=== PATIENT | female | born 1970 | race Caucasian/White ===

== ENCOUNTER 2023-03-17 07:50 | Emergency (ER) | payer OTHER, MEDICAID, SELFPAY ==
[2023-03-17 08:02] VITALS: BP 146/90; PULSE 85; RESP 20; TEMP 36.6; O2SAT 96; BMI 33.3
--- NOTE | 2023-03-17 08:12 | CT_ITS ---
[address] [address] Patient Name: DANISH HENSON MRN: [id number] date: 1970 Sex: F Assigned Patient Location: ER Current Patient Location: Accession/Order Number: [id number] Exam Date: 03/17/2023 08:34 Report Date: 03/17/2023 09:26 At the request of: CEE ALMEIDA Procedure: CT abdomen pelvis w con EXAMINATION: CT abdomen pelvis w con HISTORY: rlq pain , acute; nausea COMPARISON: No relevant comparison available. TECHNIQUE: Axial, Coronal, and Sagittal images were obtained without and/or with IV contrast as indicated by examination type. Dose reduction techniques were achieved by using automated exposure control and/or adjustment of mA and/or kV according to patient size and/or use of iterative reconstruction technique. FINDINGS: LUNG BASES: No visible pulmonary or pleural disease. LIVER: No enlargement, atrophy, suspicious density, or significant focal lesion. BILIARY: No dilatation or calcification. PANCREAS: No lesion, fluid collection, or abnormal duct dilatation. SPLEEN: No enlargement or focal lesion. ADRENALS: No mass or enlargement. KIDNEYS: No mass, obstruction, or calcification. BOWEL/MESENTERY: No visible mass, obstruction, or bowel wall thickening. Normal appendix. AORTA/VASCULAR: No aneurysm or dissection. RETROPERITONEUM: No mass or adenopathy. LYMPH NODES: No adenopathy. URINARY BLADDER: No visible focal wall thickening, lesion, or calculus. PELVIC ORGANS: Hysterectomy. ABDOMINAL WALL: No mass or hernia. BONES: Minimal grade 1 anterolisthesis of L4 on 5. Multilevel mild degenerative disc disease and degenerative facet arthropathy. No fracture. OTHER: Negative. CT/CT abdomen pelvis w con IMPRESSION: 1.No acute or specific findings to account for patient's right lower quadrant symptoms. Electronically authenticated by: STELLA OSORIO Date: 03/17/2023 09:26
--- NOTE | 2023-03-17 08:21 | ED.GENADUL1 ---
HPI - General Adult General Chief complaint: Abdominal Pain Stated complaint: ABDOMINAL PAIN Time Seen by Provider: 03/17/23 08:08 Source: patient Mode of arrival: walk-in Limitations: no limitations History of Present Illness HPI narrative: patient is a 52-year-old female who is presenting to the Emergency Room today with chief complaint of midepigastric and right upper quadrant abdominal pain, started less than a minute. Patient's pain was fairly constant all evening, she was able to sleep approximately one hour at 4 AM. The patient woke up for pain was still there. Patient had hamburgers, fruits and vegetables last evening for dinner. Patient drinks 4 or 5 steps is a day. No significant anti-inflammatories daily. Patient took some Motrin last night for a headache. Patient has no black stools. Patient had nausea no vomiting. No chest pain or shortness of breath. Patient states she's been having normal soft stool bowel movements daily with no acute complaints. Patient's had a hysterectomy. She still has her gallbladder and appendix. No bowel or bladder changes. No urinary changes. Patient has no history of acid reflux or heartburn. All systems are negative except as noted/marked. All systems reviewed and otherwise negative. . Nurses note and vital signs reviewed and patient is not hypoxic. General: The patient appears mild distress secondary to pain. Patient is resting uncomfortably on cart. Patient is not toxic, lethargic, or listless Skin: Warm, dry, no pallor noted. There is no rash noted. No petechiae, purpura. Head: Normocephalic, atraumatic Eye: Normal conjunctiva, no drainage, EOMI. PERRL Ears, Nose, Mouth, and Throat: oral mucosa is moist. Nares patent. Mouth without vesicles. Cardiovascular: Regular Rate and Rhythm, no murmur, gallop, rub Respiratory: Patient is in no distress, no accessory muscle use, lungs are clear to auscultation, no wheezing, rales or rhonchi Back: non-tender, no CVA tenderness bilaterally to percussion. No CT LS midline pain GI: soft, obese, mild to moderate midepigastric and right upper quadrant tenderness to palpation, mild to moderate right lower quadrant has palpation, mild right flank pain, mild periumbilical tenderness to palpation, no rigidity tympany, no peritoneal signs, no suprapubic tenderness to palpation, no left upper quadrant or left lower quadrant tenderness to palpation; otherwise no tenderness to palpation, no masses appreciated. No rebound, mild guarding; NO rigidity noted. No flank pain bilateral, No distention Musculoskeletal: Patient has full range of motion of all of the extremities, no motor, sensory, or focal neurological deficits Neurological: A&O x3, normal speech Psychiatric: Cooperative Related Data Previous Rx's Medication Instructions Recorded dicyclomine 20 mg tablet 20 mg PO TID PRN abdominal pain #7 03/17/23 tabs ondansetron 4 mg disintegrating 4 mg PO Q4H PRN nausea and 03/17/23 tablet vomiting 3 days #6 tabs Allergies Allergy/AdvReac Type Severity Reaction Status Date / Time Penicillins AdvReac Severe Verified 03/17/23 08:00 [facility] Surgical History (Updated 03/17/23 @ 08:06 by Steven Obrien) Social History Smoking status: Former smoker Exam Constitutional Vital Signs, click to edit/add: Last Vital Signs Temp 97.9 F 03/17/23 08:02 Pulse 74 03/17/23 10:07 Resp 18 03/17/23 10:07 BP 102/59 03/17/23 10:07 Pulse Ox 98 03/17/23 10:07 Course Vital Signs Vital signs: Vital Signs Temperature 97.9 F 03/17/23 08:02 Pulse Rate 85 03/17/23 08:02 Respiratory Rate 20 03/17/23 08:02 Blood Pressure 146/90 H 03/17/23 08:02 Pulse Oximetry 96 03/17/23 08:02 Temperature 97.9 F 03/17/23 08:02 Pulse Rate 74 03/17/23 10:07 Respiratory Rate 18 03/17/23 10:07 Blood Pressure 102/59 03/17/23 10:07 Pulse Oximetry 98 03/17/23 10:07 Medical Decision Making MDM Narrative Medical decision making narrative: Patient's lab work, urine, CT abdomen and pelvis no acute findings. Patient felt better after IV fluids and medication has been given. No clear etiology to patient's pain is been ongoing since midnight last night. A lot of differential diagnoses were discussed at discharge. Patient will use Pepcid, and either Maalox or Mylanta at home if needed. Patient was sent home with prescription for Zofran and Bentyl use if needed. Reasons why to follow-up with her PCP and to come back to the Emergency Room were discussed with and patient. No questions at discharge. reevaluation of Patient abdomen is soft, nontender, no guarding, rebound, rigidity, patient has no pain in her abdomen at discharge. Lab Data Lab results reviewed: Yes I reviewed the patient's lab results Labs: Lab Results 03/17/23 03/17/23 Range/Units 08:05 09:20 WBC 9.4 (4.0-11.0) 10^3/uL RBC 4.51 (4.20-5.40) 10^6/uL Hgb 14.2 (12.0-16.0) g/dL Hct 40.2 (36.0-48.0) % MCV 89.1 (81.0-99.0) fL MCH 31.5 (26.7-34.0) pg MCHC 35.3 H (29.9-35.2) g/dL RDW 12.8 (11.0-15.0) % Plt Count 271 (150-450) 10^3/uL MPV 11.5 (9.5-13.5) fL Neut % (Auto) 72.4 (43.0-75.0) % Lymph % (Auto) 17.6 L (20.5-60.0) % [place] % (Auto) 7.9 (1.7-12.0) % Eos % (Auto) 1.4 (0.9-7.0) % Baso % (Auto) 0.5 (0.2-2.0) % Neut # (Auto) 6.8 H (1.4-6.5) 10^3/uL Lymph # (Auto) 1.7 (1.2-3.8) 10^3/uL [place] # (Auto) 0.7 (0.3-0.8) 10^3/uL Eos # (Auto) 0.1 (0.0-0.7) 10^3/uL Baso # (Auto) 0.1 (0.0-0.1) 10^3/uL Abs Immat Gran (auto) 0.02 (0.00-0.03) 10^3/uL Imm/Tot Granulo (auto) 0.2 (0.0-0.5) % Sodium 136 (136-145) mmol/L Potassium 4.0 (3.5-5.1) mmol/L Chloride 103 (98-107) mmol/L Carbon Dioxide 24.4 (21.0-32.0) mmol/L Anion Gap 12.6 BUN 12.0 (7.0-18.0) mg/dL Creatinine 0.80 (0.55-1.02) mg/dL Est GFR ( Amer) >60 (>=60) Est GFR (Non-Af Amer) >60 (>=60) BUN/Creatinine Ratio 15.0 Glucose 120 H (74-106) mg/dL Lactate 1.0 (0.4-2.0) mmol/L Calcium 9.2 (8.5-10.1) mg/dL Total Bilirubin 1.0 (0.2-1.0) mg/dL AST 31 (15-37) U/L ALT 62 H (14-59) U/L Alkaline Phosphatase 100 (46-116) U/L Troponin I High Sens <4.0 L (4.0-51.3) pg/mL Total Protein 8.1 (6.4-8.2) g/dL Albumin 4.0 (3.4-5.0) g/dL Globulin 4.1 g/dL Albumin/Globulin Ratio 1.0 Lipase 54.0 L (73.0-393.0) U/L Urine Color Lt. yellow (YELLOW) Urine Clarity Clear (CLEAR) Urine pH 6.5 (5.0-9.0) Ur Specific [place] <=1.005 A (1.005-1.025) Urine Protein Negative (NEG/TRACE) mg/dL Urine Glucose (UA) Negative (NEGATIVE) mg/dL Urine Ketones Negative (NEGATIVE) mg/dL Urine Occult Blood Negative (NEGATIVE) Urine Nitrite Negative (NEGATIVE) Urine Bilirubin Negative (NEGATIVE) Urine Urobilinogen 0.2 (0.2-1.0) EU/dL Ur Leukocyte Esterase Negative (NEGATIVE) Urine RBC None seen (0-2) #/HPF Urine WBC None seen (NONE SEEN) #/HPF Ur Squamous Epith Cells Rare (NONE/RARE) #/LPF Urine Crystals None seen (None Seen) #/HPF Urine Bacteria None seen (NONE SEEN) #/HPF Urine Casts None seen (NONE SEEN) #/LPF Urine Mucus None seen (NONE SEEN) Imaging Data CT scan - abdomen: Radiologist's impression: see the official report. CT of the abdomen and pelvis show no acute findings. Discharge Plan Discharge Chief Complaint: Abdominal Pain Clinical Impression: Midepigastric pain, Abdominal pain Patient Disposition: Home, Self-Care Condition: Fair Prescriptions / Home Meds: New dicyclomine 20 mg tablet 20 mg PO TID PRN (Reason: abdominal pain) Qty: 7 0RF ondansetron 4 mg tablet,disintegrating 4 mg PO Q4H PRN (Reason: nausea and vomiting) 3 Days Qty: 6 0RF Instructions: Gastritis (ED), Abdominal Pain (ED), Epigastric Pain (ED) Additional Instructions: Continue to increase fluids. Use [id number] Pepcid, Maalox or Mylanta if needed if epigastric pain returns. Increase fluids, monitor bowel movements. If intractable abdominal pain, nausea or vomiting return, return to Emergency Room. Otherwise follow up with PCP for additional outpatient testing if needed. education a gastritis was given 2 for educational purposes only. Stand Alone Forms: Portal Instructions Referrals: Marlyn Bocanegra [Primary Care Provider] - 1 week
[2023-03-17] MEDS: ONDANSETRON PF 4 MG/2 ML VIAL IV (08:23)
[2023-03-17] MEDS: 0.9 % SODIUM CHLORIDE 1,000 ML 999 ML IV (08:23)
[2023-03-17] MEDS: KETOROLAC TROMETHAMINE 60 MG/2 ML VIAL 30 MG IVP (08:24)
[2023-03-17] MEDS: MORPHINE SULFATE 2 MG/ML SYRINGE 4 MG IV (08:24)
[2023-03-17 08:39] LABS: Alanine Aminotransferase 62 U/L (14-59); Alkaline Phosphatase 100 U/L (46-116); Anion Gap 12.6; Aspartate Amino Transferase 31 U/L (15-37); Calcium 9.2 mg/dL (8.5-10.1); Carbon Dioxide 24.4 mmol/L (21.0-32.0); Chloride 103 mmol/L (98-107); Estimated GFR (African America >60 (>=60); Estimated GFR (Non-African Ame >60 (>=60); Globulin 4.1 g/dL; Glucose 120 mg/dL (74-106); Sodium 136 mmol/L (136-145); Total Protein 8.1 g/dL (6.4-8.2)
[2023-03-17 08:42] LABS: Troponin I High Sensitivity <4.0 pg/mL (4.0-51.3)
[2023-03-17 08:52] VITALS: BP 134/65; PULSE 75; RESP 16; O2SAT 99
[2023-03-17 08:57] LABS: Basophils Absolute Auto 0.1 10^3/uL (0.0-0.1); Basophils Percent Auto 0.5 % (0.2-2.0); Eosinophils Absolute Auto 0.1 10^3/uL (0.0-0.7); Eosinophils Percent Auto 1.4 % (0.9-7.0); Hematocrit 40.2 % (36.0-48.0); Hemoglobin 14.2 g/dL (12.0-16.0); Immature Granulocytes Abs Auto 0.02 10^3/uL (0.00-0.03); Immature Granulocytes Pct Auto 0.2 % (0.0-0.5); Lymphocytes Absolute Auto 1.7 10^3/uL (1.2-3.8); Lymphocytes Percent Auto 17.6 % (20.5-60.0); Mean Corpuscular HGB Conc 35.3 g/dL (29.9-35.2); Mean Corpuscular Hemoglobin 31.5 pg (26.7-34.0); Mean Corpuscular Volume 89.1 fL (81.0-99.0); Mean Platelet Volume 11.5 fL (9.5-13.5); Monocytes Absolute Auto 0.7 10^3/uL (0.3-0.8); Monocytes Percent Auto 7.9 % (1.7-12.0); Neutrophils Absolute Auto 6.8 10^3/uL (1.4-6.5); Neutrophils Percent Auto 72.4 % (43.0-75.0); Platelet Count 271 10^3/uL (150-450); Red Blood Count 4.51 10^6/uL (4.20-5.40); Red Cell Distribution Width 12.8 % (11.0-15.0); White Blood Count 9.4 10^3/uL (4.0-11.0)
[2023-03-17 09:57] LABS: Bilirubin Urine NEGATIVE (NEGATIVE); Blood Urine NEGATIVE (NEGATIVE); Clarity Urine CLEAR (CLEAR); Color Urine LT. YELLOW (YELLOW); Glucose Urine UA NEGATIVE (NEGATIVE); Ketones Urine NEGATIVE (NEGATIVE); Leukocyte Esterase Urine NEGATIVE (NEGATIVE); Nitrite Urine NEGATIVE (NEGATIVE); Protein Urine NEGATIVE (NEG/TRACE); Specific Gravity Urine <=1.005 (1.005-1.025); Urobilinogen Urine 0.2 EU/dL (0.2-1.0); pH Urine 6.5 (5.0-9.0)
[2023-03-17 10:07] VITALS: BP 102/59; PULSE 74; RESP 18; O2SAT 98
[2023-03-17 10:22] LABS: Bacteria Urine NONE SEEN #/HPF (NONE SEEN); Cast Seen? NONE SEEN #/LPF (NONE SEEN); Crystals Seen? None Seen #/HPF (None Seen); Mucus Urine NONE SEEN (NONE SEEN); RBC Urine NONE SEEN #/HPF (0-2); Squamous Epithelial Cell Urine RARE #/LPF (NONE/RARE); WBC Urine NONE SEEN #/HPF (NONE SEEN)
[2023-03-17 11:21] VITALS: BP 114/75; PULSE 68; RESP 16; O2SAT 98
== END 2023-03-17 11:22 | disposition home or self-care (01) ==
PROVIDERS: Emergency Provider Emergency Medicine; PCP Nurse Practitioner
DX: R10.13 Epigastric pain (principal); R10.9 Unspecified abdominal pain; Z87.891 Personal history of nicotine dependence; Z90.710 Acquired absence of both cervix and uterus
CPT/HCPCS: 36415; 74177; 80053; 81001; 81003; 83605; 83690; 84484; 85025; 96374; 96375; 99284; Q9967